=== PATIENT | female | born 2000 | race Caucasian/White ===

== ENCOUNTER 2023-12-10 19:46 | Outpatient (CLI) | payer OTHER ==
--- NOTE | 2023-12-11 19:26 | Ultrasound Report ---
PROCEDURE: Soft Tissue Head or Neck INDICATIONS: GOITER, LYMPHADENOPATHY TECHNIQUE: Real-time scanning was performed of the thyroid gland, with image documentation. COMPARISON: None FINDINGS: Multiple grayscale and color Doppler images of the neck were acquired over the area of palpable nguyễn rn bilaterally. Visualized portions of the thyroid gland appear unremarkable. There are multiple scattered normal-appearing cervical chain lymph nodes bilaterally. These are more pronounced on the left. These are reniform morphology with preservation of central fatty hilum. No suspicious masses or fluid collections identified. IMPRESSION: Unremarkable sonographic evaluation of the neck. Areas of clinical concern correlate with morphologic ally normal-appearing lymph nodes. Recommend continued clinical surveillance with follow-up imaging a s needed. Reviewed by: Josh Anderson MD on 12/11/2023 7:24 PM PDT Approved by: Josh Anderson MD on 12/11/2023 7:24 PM PDT Station ID: [id number]
== END 2023-12-10 19:47 | disposition home or self-care (01) ==
LOC: DI 19:46
PROVIDERS: ATTEND Family Medicine
DX: E04.9 Nontoxic goiter, unspecified (principal)